=== PATIENT | female | born 1980 | race American Indian/Alaskan Native ===

== ENCOUNTER 2018-12-22 16:28 | Inpatient (IN) | payer MEDICAID ==
[2018-12-22] MEDS ORDERED: DOLOPHINE PO PRN (17:40)
[2018-12-22] MEDS ORDERED: ZOFRAN IV PRN (17:43)
[2018-12-22 19:49] LABS: Hematocrit 33.2 % (30.3-42.9); Hemoglobin 11.4 gm/dl (10.1-14.3); Mean Corpuscular HGB Conc 34 % (30-34); Mean Corpuscular Volume 74 fl (79-97); Platelet Count 408 K/mm3 (140-440); Red Blood Count 4.49 M/mm3 (3.65-5.03); Red Cell Distribution Width 14.5 % (13.2-15.2)
[2018-12-22 20:05] LABS: % Iron Saturation 38.87 %; Alanine Aminotransferase 22 units/L (7-56); Albumin 4.1 g/dL (3.9-5); BUN/Creatinine Ratio 18; Blood Urea Nitrogen 7 mg/dL (7-17); Calcium 8.9 mg/dL (8.4-10.2); Hemolysis Index 4; Iron 103 ug/dL (37-170); Total Iron Binding Capacity 265 mcg/dL (250-450)
[2018-12-22 20:33] LABS: Basophils % (Manual) 0 % (0.0-1.8); Eosinophils % (Manual) 0 % (0.0-4.3); Total Cells Counted 100
[2018-12-22 20:34] LABS: Poikilocytosis Few; Sickle Cells Few; Target Cells 3+
[2018-12-22 20:35] LABS: Giant Platelets Few; Platelet Estimate Consistent w Auto
[2018-12-22] MEDS: D5NS 0.2% 1,000 ML IV SCH (20:57)
[2018-12-22] MEDS: ELIQUIS PO SCH (21:00)
[2018-12-22] MEDS: DILAUDID IV PRN (21:45)
[2018-12-22] MEDS: BENADRYL IV PRN (21:53)
[2018-12-22] MEDS: AMBIEN PO PRN (23:15)
[2018-12-22] MEDS: ELAVIL PO SCH (23:50)
[2018-12-23] MEDS: DILAUDID IV PRN ×8 (01:20→22:26)
[2018-12-23] MEDS: D5NS 0.2% 1,000 ML IV SCH ×3 (04:11→23:05)
[2018-12-23] MEDS: BENADRYL IV PRN ×6 (04:13→22:26)
[2018-12-23 08:44] LABS: Bacteria,Urine 1+ /HPF (Negative); Bilirubin,Urine NEG (Negative); Blood,Urine NEG (Negative); Color,Urine Yellow (Yellow); Mucus,Urine FEW /HPF; Protein,Urine <15 mg/dL mg/dL (Negative); WBC,Urine < 1.0 /HPF (0.0-6.0)
[2018-12-23] MEDS: FOLVITE PO SCH (09:29)
[2018-12-23] MEDS: ELIQUIS PO SCH ×2 (09:29→21:04)
[2018-12-23] MEDS ORDERED: LASIX IV ONE ×2 (10:00)
--- NOTE | 2018-12-23 19:51 | History and Physical Report ---
History of Present Illness Date of examination: 12/23/18 Date of admission: 12/22/18 16:38 Chief complaint: Diffuse joint pain, SOB. History of present illness: Patient presented to the office with CC of diffuse joint pain, not controlled by her home meds. Exam in the office indicated symptomatic crisis like discomfort. Patient was admitted for labs, pain control, and hydration. Her labs have been reviewed, case d/w her. Even though her retic is not high, and there is no obvious anemia, non the less, she is still going through some VOD.Will continue pain management, and hydration, and anti itch, and plan d/c in the next 24hr ,or so. Past History Past Medical History: migraines Social history: Family history: no significant family history Medications and Allergies Allergies Allergy/AdvReac Type Severity Reaction Status Date / Time codeine Allergy Unknown Verified 12/22/18 17:35 vancomycin Allergy Rash Verified 12/22/18 17:35 Home Medications Medication Instructions Recorded Confirmed Last Taken Type Folic Acid [Folvite] 1 mg PO BID 05/03/13 12/22/18 12/21/18 20:30 History Gabapentin 300 mg PO TID 05/03/13 12/22/18 12/21/18 20:30 History Morphine [Morphine TAB] 30 mg PO Q4-6H PRN 05/03/13 12/22/18 12/22/18 14:00 History Promethazine [Phenergan] 25 mg PO Q4-6H PRN 05/03/13 12/22/18 12/21/18 20:30 History Furosemide [Lasix TAB] 80 mg PO BID 10/12/13 12/22/18 12/21/18 12:00 History Potassium Chloride 20 meq PO DAILY 05/04/14 12/22/18 12/21/18 20:30 History Fluticasone/Salmeterol [Advair 1 puff IH BID 01/18/15 12/22/18 12/21/18 22:00 History Diskus 500-50 mcg] Butalb/Acetamin/Caff 50-325-40 50 mg PO Q6HR PRN 03/20/15 12/22/18 12/22/18 12:00 History [Fioricet 50-325-40] Venlafaxine [Effexor 37.5mg tab] 37.5 mg PO BID 03/20/15 12/22/18 01/04/16 11:53 History hydrOXYzine PAMOATE [Vistaril] 50 mg PO BID PRN 03/20/15 12/22/18 12/21/18 20:30 History Methadone [Dolophine] 10 mg PO Q6H PRN 07/13/15 12/22/18 12/22/18 12:00 History Zolpidem [Ambien] 10 mg PO QHS 07/13/15 12/22/18 12/21/18 20:30 History Active Meds: Active Medications Amitriptyline HCl (Elavil) 75 mg PO QHS DIONTE Last Admin: 12/22/18 23:50 Dose: 75 mg Documented by: Apixaban (Eliquis) 5 mg PO Q12HR DIONTE; Protocol Last Admin: 12/23/18 09:29 Dose: 5 mg Documented by: Diphenhydramine HCl (Benadryl) 25 mg IV Q3HR PRN PRN Reason: Itching Last Admin: 12/23/18 19:07 Dose: 25 mg Documented by: Folic Acid (Folvite) 1 mg PO QDAY DIONTE Last Admin: 12/23/18 09:29 Dose: 1 mg Documented by: Hydromorphone HCl (Dilaudid) 2 mg IV Q3H PRN PRN Reason: Pain , Severe (7-10) Last Admin: 12/23/18 19:07 Dose: 2 mg Documented by: Dextrose/Sodium Chloride (D5ns 0.2%) 1,000 mls @ 175 mls/hr IV DIRECT DIONTE Last Admin: 12/23/18 09:33 Dose: 175 mls/hr Documented by: Methadone HCl (Dolophine) 10 mg PO Q8HR PRN PRN Reason: BREAKTHRU PAIN Last Admin: 12/22/18 23:14 Dose: 10 mg Documented by: Ondansetron HCl (Zofran) 4 mg IV Q8H PRN PRN Reason: Nausea And Vomiting Last Admin: 12/23/18 01:20 Dose: 4 mg Documented by: Zolpidem Tartrate (Ambien) 5 mg PO QHS PRN PRN Reason: Sleep Last Admin: 12/22/18 23:15 Dose: 5 mg Documented by: Review of Systems Constitutional: fatigue, chronic pain Breasts: deferred Respiratory: shortness of breath Musculoskeletal: low back pain Integumentary: pruritis Psychiatric: insomnia, depression Exam - Constitutional Vitals: Temp Pulse Resp BP Pulse Ox 98.2 F 100 H 18 110/62 93 12/23/18 16:42 12/23/18 16:42 12/23/18 16:42 12/23/18 16:42 12/23/18 16:42 General appearance: Present: mild distress, well-nourished - EENT Eyes: Present: PERRL ENT: hearing intact, clear oral mucosa - Neck Neck: Present: supple, normal ROM - Respiratory Respiratory effort: normal Respiratory: bilateral: CTA - Cardiovascular Heart Sounds: Present: S1 & S2. Absent: rub, click - Extremities Extremities: pulses symmetrical, No edema Peripheral Pulses: within normal limits - Abdominal General gastrointestinal: Present: soft, non-tender, non-distended, normal bowel sounds Female genitourinary: Present: deferred - Rectal Rectal Exam: deferred - Integumentary Integumentary: Present: clear, warm, dry - Musculoskeletal Musculoskeletal: gait normal, strength equal bilaterally - Psychiatric Psychiatric: appropriate mood/affect, intact judgment & insight - Neurologic Neurologic: CNII-XII intact, moves all extremities Results - Labs CBC & Chem 7: 12/22/18 19:10 12/22/18 19:10 Labs: Abnormal lab results 12/22/18 12/22/18 Range/Units 19:10 19:10 WBC 12.6 H (4.5-11.0) K/mm3 MCV 74 L (79-97) fl MCH 25 L (28-32) pg Lymphocytes % (Manual) 47.0 H (13.4-35.0) % Monocytes % (Manual) 8.0 H (0.0-7.3) % Lymphocytes # (Manual) 5.9 H (1.2-5.4) K/mm3 Monocytes # (Manual) 1.0 H (0.0-0.8) K/mm3 Creatinine 0.4 L (0.7-1.2) mg/dL Lactate Dehydrogenase 252 H (91-180) units/L Assessment and Plan - Patient Problems (1) Sickle cell anemia with pain Current Visit: Yes Status: Acute Plan to address problem: monitor labs., pain control. (2) Dehydration Current Visit: Yes Status: Acute Plan to address problem: hydration (3) Pruritic condition Current Visit: Yes Status: Acute Plan to address problem: Due to Diludid, will continue with Benadryl, with prn adjusted dose.
[2018-12-23] MEDS ORDERED: BENADRYL IV ONE (19:58)
[2018-12-23] MEDS: ELAVIL PO SCH (21:04)
[2018-12-23] MEDS ORDERED: ELAVIL PO SCH (22:00)
[2018-12-23] MEDS: ROCEPHIN/NS 1 GM/50 ML 1 GM/50 ML BAG IV SCH (23:04)
[2018-12-23] MEDS: AMBIEN PO PRN (23:04)
[2018-12-24] MEDS: DILAUDID IV PRN ×7 (01:35→21:33)
[2018-12-24] MEDS: BENADRYL IV PRN ×6 (01:35→18:33)
[2018-12-24] MEDS: ELIQUIS PO SCH ×2 (10:16→21:33)
[2018-12-24] MEDS: ROCEPHIN/NS 1 GM/50 ML 1 GM/50 ML BAG IV SCH (10:16)
[2018-12-24] MEDS: FOLVITE PO SCH (10:16)
[2018-12-24] MEDS: D5NS 0.2% 1,000 ML IV SCH ×2 (11:53→20:30)
--- NOTE | 2018-12-24 19:15 | Progress Note ---
Assessment and Plan - Patient Problems (1) Sickle cell anemia with pain Current Visit: Yes Status: Acute Plan to address problem: monitor labs., pain control. (2) Dehydration Current Visit: Yes Status: Acute Plan to address problem: hydration (3) Pruritic condition Current Visit: Yes Status: Acute Plan to address problem: Due to Diludid, will continue with Benadryl, with prn adjusted dose. (4) Bacteremia Current Visit: Yes Status: Acute Plan to address problem: continue with IV ABX. Subjective Date of service: 12/24/18 Interval history: Patient seen/examined, resting in bed, labs reviewed, including BC with gram negative rods, in 1 of 2 blood culture bottles. patient started on IV ABx yes terday. Will continue for few days, and d/c on oral ABX. Objective - Constitutional Vitals: Vital Signs - 12hr 12/24/18 12/24/18 12/24/18 08:30 09:00 11:26 Temperature 98.4 F Pulse Rate 96 H Respiratory 18 18 20 Rate Blood Pressure 115/63 O2 Sat by Pulse 90 Oximetry 12/24/18 12/24/18 17:12 18:33 Temperature 98.9 F Pulse Rate 102 H Respiratory 16 18 Rate Blood Pressure 129/59 O2 Sat by Pulse 91 Oximetry General appearance: Present: mild distress, well-nourished - EENT Eyes: PERRL, EOM intact ENT: hearing intact, clear oral mucosa Ears: bilateral: normal - Neck Neck: supple, normal ROM - Respiratory Respiratory effort: normal Respiratory: bilateral: CTA - Breasts Breasts: deferred - Cardiovascular Rhythm: regular Heart Sounds: Present: S1 & S2. Absent: gallop, rub Extremities: pulses intact, No edema, normal color, Full ROM - Gastrointestinal General gastrointestinal: Present: soft, non-tender, non-distended, normal bowel sounds Rectal Exam: deferred - Genitourinary Female genitourinary: deferred - Integumentary Integumentary: clear, warm, dry - Musculoskeletal Musculoskeletal: 1, strength equal bilaterally - Neurologic Neurologic: moves all extremities - Psychiatric Psychiatric: memory intact, appropriate mood/affect, intact judgment & insight - Labs CBC & Chem 7: 12/22/18 19:10 12/22/18 19:10 Medications & Allergies - Medications Allergies/Adverse Reactions: Allergies codeine Allergy (Verified 12/22/18 17:35) Unknown vancomycin Allergy (Verified 12/22/18 17:35) Rash "galo my skin" Home Medications: Home Medications Medication Instructions Recorded Confirmed Last Taken Type Folic Acid [Folvite] 1 mg PO BID 05/03/13 12/22/18 12/21/18 20:30 History Gabapentin 300 mg PO TID 05/03/13 12/22/18 12/21/18 20:30 History Morphine [Morphine TAB] 30 mg PO Q4-6H PRN 05/03/13 12/22/18 12/22/18 14:00 History Promethazine [Phenergan] 25 mg PO Q4-6H PRN 05/03/13 12/22/18 12/21/18 20:30 History Furosemide [Lasix TAB] 80 mg PO BID 10/12/13 12/22/18 12/21/18 12:00 History Potassium Chloride 20 meq PO DAILY 05/04/14 12/22/18 12/21/18 20:30 History Fluticasone/Salmeterol [Advair 1 puff IH BID 01/18/15 12/22/18 12/21/18 22:00 History Diskus 500-50 mcg] Butalb/Acetamin/Caff 50-325-40 50 mg PO Q6HR PRN 03/20/15 12/22/18 12/22/18 12:00 History [Fioricet 50-325-40] Venlafaxine [Effexor 37.5mg tab] 37.5 mg PO BID 03/20/15 12/22/18 01/04/16 11:53 History hydrOXYzine PAMOATE [Vistaril] 50 mg PO BID PRN 03/20/15 12/22/18 12/21/18 20:30 History Methadone [Dolophine] 10 mg PO Q6H PRN 07/13/15 12/22/18 12/22/18 12:00 History Zolpidem [Ambien] 10 mg PO QHS 07/13/15 12/22/18 12/21/18 20:30 History Active Medications: Generic Name Dose Route Start Last Admin Trade Name Freq PRN Reason Stop Dose Admin Amitriptyline HCl 75 mg 12/22/18 22:00 12/23/18 21:04 Elavil PO 75 mg QHS DIONTE Administration Apixaban 5 mg 12/22/18 22:00 12/24/18 10:16 Eliquis PO 5 mg Q12HR DIONTE Administration Protocol Diphenhydramine HCl 25 mg 12/23/18 12:42 12/24/18 18:33 Benadryl IV 25 mg Q3HR PRN Administration Itching Folic Acid 1 mg 12/23/18 10:00 12/24/18 10:16 Folvite PO 1 mg QDAY DIONTE Administration Hydromorphone HCl 2 mg 12/22/18 17:51 12/24/18 18:33 Dilaudid IV 2 mg Q3H PRN Administration Pain , Severe (7-10) Dextrose/Sodium Chloride 1,000 mls @ 175 mls/hr 12/22/18 18:00 12/24/18 11:53 D5ns 0.2% IV 175 mls/hr DIRECT DIONTE Administration Ceftriaxone Sodium 1 gm in 50 mls @ 100 mls/hr 12/23/18 21:00 12/24/18 10:16 Rocephin/Ns 1 Gm/50 Ml IV 100 mls/hr Q24HR DIONTE Administration Protocol Methadone HCl 10 mg 12/22/18 17:40 12/22/18 23:14 Dolophine PO 10 mg Q8HR PRN Administration BREAKTHRU PAIN Ondansetron HCl 4 mg 12/22/18 17:43 12/23/18 01:20 Zofran IV 4 mg Q8H PRN Administration Nausea And Vomiting Zolpidem Tartrate 5 mg 12/22/18 17:37 12/23/18 23:04 Ambien PO 5 mg QHS PRN Administration Sleep
[2018-12-24] MEDS: ELAVIL PO SCH (21:37)
[2018-12-24] MEDS ORDERED: MIRALAX 3350 PO PRN (23:29)
[2018-12-25] MEDS: DILAUDID IV PRN ×8 (00:32→22:12)
[2018-12-25] MEDS: COLACE PO SCH ×3 (00:32→22:11)
[2018-12-25] MEDS: BENADRYL IV PRN ×4 (00:32→19:01)
[2018-12-25] MEDS: AMBIEN PO PRN ×2 (01:57→22:11)
[2018-12-25] MEDS: D5NS 0.2% 1,000 ML IV SCH ×3 (05:29→19:02)
--- NOTE | 2018-12-25 09:19 | Progress Note ---
Assessment and Plan - Patient Problems (1) Sickle cell anemia with pain Current Visit: Yes Status: Acute Plan to address problem: monitor labs., pain control. (2) Dehydration Current Visit: Yes Status: Acute Plan to address problem: hydration (3) Pruritic condition Current Visit: Yes Status: Acute Plan to address problem: Due to Diludid, will continue with Benadryl, with prn adjusted dose. (4) Bacteremia Current Visit: Yes Status: Acute Plan to address problem: continue with IV ABX. Subjective Date of service: 12/25/18 Interval history: Patient seen/examined, resting in bed, labs reviewed, including BC with gram negative rods, in 1 of 2 blood culture bottles. patient started on IV ABx yes terday. Will continue for few days, and d/c on oral ABX. patient seen/examined, resting in bed, records reviewed, no new issues at this time.will continue IV ABX for another 2 or so days, and d/c home. Objective - Constitutional Vitals: Vital Signs - 12hr 12/25/18 12/25/18 00:30 05:48 Temperature 98.4 F 98.5 F Pulse Rate 101 H 106 H Respiratory 18 20 Rate Blood Pressure 121/66 115/74 O2 Sat by Pulse 98 99 Oximetry General appearance: Present: mild distress, well-nourished - EENT Eyes: PERRL, EOM intact ENT: hearing intact, clear oral mucosa Ears: bilateral: normal - Neck Neck: supple, normal ROM - Respiratory Respiratory effort: normal Respiratory: bilateral: CTA - Breasts Breasts: deferred - Cardiovascular Rhythm: regular Heart Sounds: Present: S1 & S2. Absent: gallop, rub Extremities: pulses intact, No edema, normal color, Full ROM - Gastrointestinal General gastrointestinal: Present: soft, non-tender, non-distended, normal bowel sounds Rectal Exam: deferred - Genitourinary Female genitourinary: deferred - Integumentary Integumentary: clear, warm, dry - Musculoskeletal Musculoskeletal: 1, strength equal bilaterally - Neurologic Neurologic: moves all extremities - Psychiatric Psychiatric: memory intact, appropriate mood/affect, intact judgment & insight - Labs CBC & Chem 7: 12/22/18 19:10 12/22/18 19:10 Medications & Allergies - Medications Allergies/Adverse Reactions: Allergies codeine Allergy (Verified 12/22/18 17:35) Unknown vancomycin Allergy (Verified 12/22/18 17:35) Rash "galo my skin" Home Medications: Home Medications Medication Instructions Recorded Confirmed Last Taken Type Folic Acid [Folvite] 1 mg PO BID 05/03/13 12/22/18 12/21/18 20:30 History Gabapentin 300 mg PO TID 05/03/13 12/22/18 12/21/18 20:30 History Morphine [Morphine TAB] 30 mg PO Q4-6H PRN 05/03/13 12/22/18 12/22/18 14:00 History Promethazine [Phenergan] 25 mg PO Q4-6H PRN 05/03/13 12/22/18 12/21/18 20:30 History Furosemide [Lasix TAB] 80 mg PO BID 10/12/13 12/22/18 12/21/18 12:00 History Potassium Chloride 20 meq PO DAILY 05/04/14 12/22/18 12/21/18 20:30 History Fluticasone/Salmeterol [Advair 1 puff IH BID 01/18/15 12/22/18 12/21/18 22:00 History Diskus 500-50 mcg] Butalb/Acetamin/Caff 50-325-40 50 mg PO Q6HR PRN 03/20/15 12/22/18 12/22/18 12:00 History [Fioricet 50-325-40] Venlafaxine [Effexor 37.5mg tab] 37.5 mg PO BID 03/20/15 12/22/18 01/04/16 11:53 History hydrOXYzine PAMOATE [Vistaril] 50 mg PO BID PRN 03/20/15 12/22/18 12/21/18 20:30 History Methadone [Dolophine] 10 mg PO Q6H PRN 07/13/15 12/22/18 12/22/18 12:00 History Zolpidem [Ambien] 10 mg PO QHS 07/13/15 12/22/18 12/21/18 20:30 History Active Medications: Generic Name Dose Route Start Last Admin Trade Name Freq PRN Reason Stop Dose Admin Amitriptyline HCl 75 mg 12/22/18 22:00 12/24/18 21:37 Elavil PO 75 mg QHS DIONTE Administration Apixaban 5 mg 12/22/18 22:00 12/24/18 21:33 Eliquis PO 5 mg Q12HR DIONTE Administration Protocol Diphenhydramine HCl 50 mg 12/24/18 20:21 12/25/18 06:52 Benadryl IV 50 mg Q6H PRN Administration Itching Docusate Sodium 100 mg 12/24/18 23:45 12/25/18 00:32 Colace PO 100 mg BID DIONTE Administration Folic Acid 1 mg 12/23/18 10:00 12/24/18 10:16 Folvite PO 1 mg QDAY DIONTE Administration Hydromorphone HCl 2 mg 12/22/18 17:51 12/25/18 06:51 Dilaudid IV 2 mg Q3H PRN Administration Pain , Severe (7-10) Dextrose/Sodium Chloride 1,000 mls @ 175 mls/hr 12/22/18 18:00 12/25/18 05:29 D5ns 0.2% IV 175 mls/hr DIRECT DIONTE Administration Ceftriaxone Sodium 1 gm in 50 mls @ 100 mls/hr 12/23/18 21:00 12/24/18 10:16 Rocephin/Ns 1 Gm/50 Ml IV 100 mls/hr Q24HR DIONTE Administration Protocol Methadone HCl 10 mg 12/22/18 17:40 12/22/18 23:14 Dolophine PO 10 mg Q8HR PRN Administration BREAKTHRU PAIN Ondansetron HCl 4 mg 12/22/18 17:43 12/23/18 01:20 Zofran IV 4 mg Q8H PRN Administration Nausea And Vomiting Polyethylene Glycol 17 gm 12/24/18 23:29 Miralax 3350 PO QDAY PRN Constipation Zolpidem Tartrate 5 mg 12/22/18 17:37 12/25/18 01:57 Ambien PO 5 mg QHS PRN Administration Sleep
[2018-12-25] MEDS: ELIQUIS PO SCH ×2 (09:52→22:11)
[2018-12-25] MEDS: FOLVITE PO SCH (09:53)
[2018-12-25] MEDS: ROCEPHIN/NS 1 GM/50 ML 1 GM/50 ML BAG IV SCH (09:53)
[2018-12-25] MEDS: ELAVIL PO SCH (22:11)
[2018-12-26] MEDS: BENADRYL IV PRN ×4 (01:14→23:25)
[2018-12-26] MEDS: DILAUDID IV PRN ×7 (01:14→23:25)
[2018-12-26] MEDS: D5NS 0.2% 1,000 ML IV SCH ×4 (01:17→23:24)
[2018-12-26] MEDS: ELIQUIS PO SCH ×2 (09:43→21:32)
[2018-12-26] MEDS: FOLVITE PO SCH (09:43)
[2018-12-26] MEDS: COLACE PO SCH ×2 (09:43→21:32)
[2018-12-26 10:21] LABS: Hematocrit 29.2 % (30.3-42.9); Mean Corpuscular HGB Conc 34 % (30-34); Mean Corpuscular Volume 74 fl (79-97); Platelet Count 381 K/mm3 (140-440); Red Blood Count 3.96 M/mm3 (3.65-5.03); Red Cell Distribution Width 14.8 % (13.2-15.2)
[2018-12-26] MEDS: ROCEPHIN/NS 1 GM/50 ML 1 GM/50 ML BAG IV SCH (10:40)
[2018-12-26 11:28] LABS: BUN/Creatinine Ratio 20; Blood Urea Nitrogen 6 mg/dL (7-17); Calcium 8.4 mg/dL (8.4-10.2); Hemolysis Index 15
[2018-12-26 11:38] LABS: Basophils % (Manual) 0 % (0.0-1.8); Total Cells Counted 100
[2018-12-26 11:43] LABS: Target Cells 2+
[2018-12-26 11:44] LABS: Anisocytosis 1+; Platelet Estimate Consistent w Auto; Poikilocytosis 1+; Sickle Cells Few; Stomatocytes 1+
[2018-12-26] MEDS ORDERED: BENADRYL ONE (15:48)
--- NOTE | 2018-12-26 18:51 | Progress Note ---
Assessment and Plan - Patient Problems (1) Sickle cell anemia with pain Current Visit: Yes Status: Acute Plan to address problem: monitor labs., pain control. (2) Dehydration Current Visit: Yes Status: Acute Plan to address problem: hydration (3) Pruritic condition Current Visit: Yes Status: Acute Plan to address problem: Due to Diludid, will continue with Benadryl, with prn adjusted dose. (4) Bacteremia Current Visit: Yes Status: Acute Plan to address problem: continue with IV ABX. (5) Sepsis Current Visit: Yes Status: Acute Plan to address problem: IV ABX Subjective Date of service: 12/26/18 Interval history: Patient seen/examined, resting in bed, labs reviewed, including BC with gram negative rods, in 1 of 2 blood culture bottles. patient started on IV ABx yesterday. Will continue for few days, and d/c on oral ABX. patient seen/examined, resting in bed, records reviewed, no new issues at this time.will continue IV ABX for another 2 or so days, and d/c home. patient seen, examined, resting in bed, labs/cultures reviewed, case d/w her. She is growing Diptheroids in the blood. Objective - Constitutional Vitals: Vital Signs - 12hr 12/26/18 12/26/18 11:20 16:39 Temperature 98.6 F 98.2 F Pulse Rate 90 99 H Respiratory 20 22 Rate Blood Pressure 113/63 105/63 O2 Sat by Pulse 98 93 Oximetry General appearance: Present: mild distress, well-nourished - EENT Eyes: PERRL, EOM intact ENT: hearing intact, clear oral mucosa Ears: bilateral: normal - Neck Neck: supple, normal ROM - Respiratory Respiratory effort: normal Respiratory: bilateral: CTA - Breasts Breasts: deferred - Cardiovascular Rhythm: regular Heart Sounds: Present: S1 & S2. Absent: gallop, rub Extremities: pulses intact, No edema, normal color, Full ROM - Gastrointestinal General gastrointestinal: Present: soft, non-tender, non-distended, normal bowel sounds Rectal Exam: deferred - Genitourinary Female genitourinary: deferred - Integumentary Integumentary: clear, warm, dry - Musculoskeletal Musculoskeletal: 1, strength equal bilaterally - Neurologic Neurologic: moves all extremities - Psychiatric Psychiatric: memory intact, appropriate mood/affect, intact judgment & insight - Labs CBC & Chem 7: 12/26/18 09:40 12/26/18 09:40 Labs: Abnormal lab results 12/26/18 12/26/18 Range/Units 09:40 09:40 WBC 13.3 H (4.5-11.0) K/mm3 Hgb 10.0 L (10.1-14.3) gm/dl Hct 29.2 L (30.3-42.9) % MCV 74 L (79-97) fl MCH 25 L (28-32) pg Lymphocytes % (Manual) 46.0 H (13.4-35.0) % Nucleated RBC % 1.0 H (0.0-0.9) % Lymphocytes # (Manual) 6.1 H (1.2-5.4) K/mm3 Percent Retic 3.10 H (0.78-2.58) % Sodium 135 L (137-145) mmol/L BUN 6 L (7-17) mg/dL Creatinine 0.3 L (0.7-1.2) mg/dL Glucose 118 H (65-100) mg/dL Medications & Allergies - Medications Allergies/Adverse Reactions: Allergies codeine Allergy (Verified 12/22/18 17:35) Unknown vancomycin Allergy (Verified 12/22/18 17:35) Rash "galo my skin" Home Medications: Home Medications Medication Instructions Recorded Confirmed Last Taken Type Folic Acid [Folvite] 1 mg PO BID 05/03/13 12/22/18 12/21/18 20:30 History Gabapentin 300 mg PO TID 05/03/13 12/22/18 12/21/18 20:30 History Morphine [Morphine TAB] 30 mg PO Q4-6H PRN 05/03/13 12/22/18 12/22/18 14:00 History Promethazine [Phenergan] 25 mg PO Q4-6H PRN 05/03/13 12/22/18 12/21/18 20:30 History Furosemide [Lasix TAB] 80 mg PO BID 10/12/13 12/22/18 12/21/18 12:00 History Potassium Chloride 20 meq PO DAILY 05/04/14 12/22/18 12/21/18 20:30 History Fluticasone/Salmeterol [Advair 1 puff IH BID 07/12/22/18 12/21/18 22:00 History Diskus 500-50 mcg] Butalb/Acetamin/Caff 50-325-40 50 mg PO Q6HR PRN 03/20/15 12/22/18 12/22/18 1 2:00 History [Fioricet 50-325-40] Venlafaxine [Effexor 37.5mg tab] 37.5 mg PO BID 03/20/15 12/22/18 01/04/16 11:53 History hydrOXYzine PAMOATE [Vistaril] 50 mg PO BID PRN 03/20/15 12/22/18 12/21/18 20:30 History Methadone [Dolophine] 10 mg PO Q6H PRN 07/13/15 12/22/18 12/22/18 12:00 History Zolpidem [Ambien] 10 mg PO QHS 07/13/15 12/22/18 12/21/18 20:30 History Active Medications: Generic Name Dose Route Start Last Admin Trade Name Jose Danielq PRN Reason Stop Dose Admin Amitriptyline HCl 75 mg 12/22/18 22:00 12/25/18 22:11 Elavil PO 75 mg QHS DIONTE Administration Apixaban 5 mg 12/22/18 22:00 12/26/18 09:43 Eliquis PO 5 mg Q12HR DIONTE Administration Protocol Diphenhydramine HCl 50 mg 12/24/18 20:21 12/26/18 15:58 Benadryl IV 50 mg Q6H PRN Administration Itching Docusate Sodium 100 mg 12/24/18 23:45 12/26/18 09:43 Colace PO 100 mg BID DIONTE Administration Folic Acid 1 mg 12/23/18 10:00 12/26/18 09:43 Folvite PO 1 mg QDAY DIONTE Administration Hydromorphone HCl 2 mg 12/22/18 17:51 12/26/18 15:58 Dilaudid IV 2 mg Q3H PRN Administration Pain , Severe (7-10) Dextrose/Sodium Chloride 1,000 mls @ 175 mls/hr 12/22/18 18:00 12/26/18 16:39 D5ns 0.2% IV 175 mls/hr DIRECT DIONTE Administration Ceftriaxone Sodium 1 gm in 50 mls @ 100 mls/hr 12/23/18 21:00 12/26/18 10:40 Rocephin/Ns 1 Gm/50 Ml IV 100 mls/hr Q24HR DIONTE Administration Protocol Methadone HCl 10 mg 12/22/18 17:40 12/22/18 23:14 Dolophine PO 10 mg Q8HR PRN Administration BREAKTHRU PAIN Ondansetron HCl 4 mg 12/22/18 17:43 12/23/18 01:20 Zofran IV 4 mg Q8H PRN Administration Nausea And Vomiting Polyethylene Glycol 17 gm 12/24/18 23:29 Miralax 3350 PO QDAY PRN Constipation Zolpidem Tartrate 5 mg 12/22/18 17:37 12/25/18 22:11 Ambien PO 5 mg QHS PRN Administration Sleep
[2018-12-26] MEDS: ELAVIL PO SCH (21:32)
[2018-12-27] MEDS: DILAUDID IV PRN ×6 (02:39→21:02)
[2018-12-27] MEDS: AMBIEN PO PRN (03:38)
[2018-12-27] MEDS: D5NS 0.2% 1,000 ML IV SCH ×3 (06:34→20:35)
[2018-12-27] MEDS: BENADRYL IV PRN ×3 (06:34→21:03)
[2018-12-27] MEDS: FOLVITE PO SCH (09:38)
[2018-12-27] MEDS: ELIQUIS PO SCH ×2 (09:38→21:04)
[2018-12-27] MEDS: COLACE PO SCH ×2 (09:38→21:04)
[2018-12-27] MEDS: ROCEPHIN/NS 1 GM/50 ML 1 GM/50 ML BAG IV SCH (09:39)
--- NOTE | 2018-12-27 15:25 | Progress Note ---
Assessment and Plan - Patient Problems (1) Sickle cell anemia with pain Current Visit: Yes Status: Acute Plan to address problem: monitor labs., pain control. (2) Dehydration Current Visit: Yes Status: Acute Plan to address problem: hydration (3) Pruritic condition Current Visit: Yes Status: Acute Plan to address problem: Due to Diludid, will continue with Benadryl, with prn adjusted dose. (4) Bacteremia Current Visit: Yes Status: Acute Plan to address problem: continue with IV ABX. (5) Sepsis Current Visit: Yes Status: Acute Plan to address problem: IV ABX Subjective Date of service: 12/27/18 Interval history: Patient seen/examined, resting in bed, labs reviewed, including BC with gram negative rods, in 1 of 2 blood culture bottles. patient started on IV ABx yesterday. Will continue for few days, and d/c on oral ABX. patient seen/examined, resting in bed, records reviewed, no new issues at this time.will continue IV ABX for another 2 or so days, and d/c home. patient seen, examined, resting in bed, labs/cultures reviewed, case d/w her. She is growing Diptheroids in the blood. Patient seen/examined, resting in bed, labs reviewed, still awaiting ID rec so patient can be d/c home. the only reason she is still here , is for ID to render opinion on on current ABX. Objective - Constitutional Vitals: Vital Signs - 12hr 12/27/18 12/27/18 12/27/18 09:39 10:00 10:09 Respiratory 18 18 Rate Respiratory 18 Rate [rt leg left hip pain] O2 Sat by Pulse Oximetry 12/27/18 12/27/18 12:39 14:00 Respiratory 18 Rate Respiratory Rate [rt leg left hip pain] O2 Sat by Pulse 95 Oximetry General appearance: Present: no acute distress, well-nourished - EENT Eyes: PERRL, EOM intact ENT: hearing intact, clear oral mucosa Ears: bilateral: normal - Neck Neck: supple, normal ROM - Respiratory Respiratory effort: normal Respiratory: bilateral: CTA - Breasts Breasts: deferred - Cardiovascular Rhythm: regular Heart Sounds: Present: S1 & S2. Absent: gallop, rub Extremities: pulses intact, No edema, normal color, Full ROM - Gastrointestinal General gastrointestinal: Present: soft, non-tender, non-distended, normal bowel sounds Rectal Exam: deferred - Genitourinary Female genitourinary: deferred - Integumentary Integumentary: clear, warm, dry - Musculoskeletal Musculoskeletal: 1, strength equal bilaterally - Neurologic Neurologic: moves all extremities - Psychiatric Psychiatric: memory intact, appropriate mood/affect, intact judgment & insight - Labs CBC & Chem 7: 12/26/18 09:40 12/26/18 09:40 Medications & Allergies - Medications Allergies/Adverse Reactions: Allergies codeine Allergy (Verified 12/22/18 17:35) Unknown vancomycin Allergy (Verified 12/22/18 17:35) Rash "galo my skin" Home Medications: Home Medications Medication Instructions Recorded Confirmed Last Taken Type Folic Acid [Folvite] 1 mg PO BID 05/03/13 12/22/18 12/21/18 20:30 History Gabapentin 300 mg PO TID 05/03/13 12/22/18 12/21/18 20:30 History Morphine [Morphine TAB] 30 mg PO Q4-6H PRN 05/03/13 12/22/18 12/22/18 14:00 History Promethazine [Phenergan] 25 mg PO Q4-6H PRN 05/03/13 12/22/18 12/21/18 20:30 History Furosemide [Lasix TAB] 80 mg PO BID 10/12/13 12/22/18 12/21/18 12:00 History Potassium Chloride 20 meq PO DAILY 05/04/14 12/22/18 12/21/18 20:30 History Fluticasone/Salmeterol [Advair 1 puff IH BID 01/18/15 12/22/18 12/21/18 22:00 History Diskus 500-50 mcg] Butalb/Acetamin/Caff 50-325-40 50 mg PO Q6HR PRN 03/20/15 12/22/18 12/22/18 12:00 History [Fioricet 50-325-40] Venlafaxine [Effexor 37.5mg tab] 37.5 mg PO BID 03/20/15 12/22/18 01/04/16 11:53 History hydrOXYzine PAMOATE [Vistaril] 50 mg PO BID PRN 03/20/15 12/22/18 12/21/18 20:30 History Methadone [Dolophine] 10 mg PO Q6H PRN 07/13/15 12/22/18 12/22/18 12:00 History Zolpidem [Ambien] 10 mg PO QHS 07/13/15 12/22/18 12/21/18 20:30 History Active Medications: Generic Name Dose Route Start Last Admin Trade Name Freq PRN Reason Stop Dose Admin Amitriptyline HCl 75 mg 12/22/18 22:00 12/26/18 21:32 Elavil PO 75 mg QHS DIONET Administration Apixaban 5 mg 12/22/18 22:00 12/27/18 09:38 Eliquis PO 5 mg Q12HR DIONTE Administration Protocol Diphenhydramine HCl 50 mg 12/24/18 20:21 12/27/18 12:40 Benadryl IV 50 mg Q6H PRN Administration Itching Docusate Sodium 100 mg 12/24/18 23:45 12/27/18 09:38 Colace PO 100 mg BID DIONTE Administration Folic Acid 1 mg 12/23/18 10:00 12/27/18 09:38 Folvite PO 1 mg QDAY DIONTE Administration Hydromorphone HCl 2 mg 12/22/18 17:51 12/27/18 12:39 Dilaudid IV 2 mg Q3H PRN Administration Pain , Severe (7-10) Dextrose/Sodium Chloride 1,000 mls @ 175 mls/hr 12/22/18 18:00 12/27/18 12:44 D5ns 0.2% IV 175 mls/hr DIRECT DIONTE Administration Ceftriaxone Sodium 1 gm in 50 mls @ 100 mls/hr 12/23/18 21:00 12/27/18 09:39 Rocephin/Ns 1 Gm/50 Ml IV 100 mls/hr Q24HR DIONTE Administration Protocol Methadone HCl 10 mg 12/22/18 17:40 12/22/18 23:14 Dolophine PO 10 mg Q8HR PRN Administration BREAKTHRU PAIN Ondansetron HCl 4 mg 12/22/18 17:43 12/23/18 01:20 Zofran IV 4 mg Q8H PRN Administration Nausea And Vomiting Polyethylene Glycol 17 gm 12/24/18 23:29 Miralax 3350 PO QDAY PRN Constipation Zolpidem Tartrate 5 mg 06/17/19 17:37 12/27/18 03:38 Ambien PO 5 mg QHS PRN Administration Sleep
--- NOTE | 2018-12-27 16:48 | Consultation ---
History of Present Illness - Reason for Consult Consult date: 12/27/18 Positive blood culture Requesting physician: TITO HAYNES - History of Present Illness The patient is a 38-year-old female with known history of sickle cell disease who was admitted from the hematology clinic due to complaints of diffuse body and joint pains on 12/22/2018. She was given hydration. Blood cultures on admission initially were reported as gram-negative rods, later they were cor rected to gram-positive rods and now culture finalized as diphtheroids. Hence infectious diseases was consulted for additional recommendations. Currently, patient feels well and almost back to baseline. She has remained afebrile throughout hospitalization. She denies any nausea or vomiting. She does have an indwelling port but her blood cultures were collected through peripheral venous sticks. She reports chronic leukocytosis secondary to her sickle cell disease. Review of Systems: General: no fevers,chills or rigors HEENT: no new visual disturbance Respiratory: No cough, sputum, hemoptysis or shortness of breath Cardiovascular: No chest pain, syncope Gastrointestinal: No nausea, vomiting or diarrhea Genitourinary: No dysuria or hematuria Musculoskeletal: No new or worsening neck pain or back pain. Chronic pain + Neurologic: No headaches, seizures Hematologic: No easy bruising or bleeding Endocrine: No night sweats or acute weight loss Skin: negative for rash, jaundice Psychiatric: No suicidal or homicidal ideation Past History Past Medical History: migraines Social history: Family history: no significant family history Medications and Allergies Allergies Allergy/AdvReac Type Severity Reaction Status Date / Time codeine Allergy Unknown Verified 12/22/18 17:35 vancomycin Allergy Rash Verified 12/22/18 17:35 Home Medications Medication Instructions Recorded Confirmed Last Taken Type Folic Acid [Folvite] 1 mg PO BID 05/03/13 12/22/18 12/21/18 20:30 History Gabapentin 300 mg PO TID 05/03/13 12/22/18 12/21/18 20:30 History Morphine [Morphine TAB] 30 mg PO Q4-6H PRN 05/03/13 12/22/18 12/22/18 14:00 History Promethazine [Phenergan] 25 mg PO Q4-6H PRN 05/03/13 12/22/18 12/21/18 20:30 History Furosemide [Lasix TAB] 80 mg PO BID 10/12/13 12/22/18 12/21/18 12:00 History Potassium Chloride 20 meq PO DAILY 05/04/14 12/22/18 12/21/18 20:30 History Fluticasone/Salmeterol [Advair 1 puff IH BID 01/18/15 12/22/18 12/21/18 22:00 History Diskus 500-50 mcg] Butalb/Acetamin/Caff 50-325-40 50 mg PO Q6HR PRN 03/20/15 12/22/18 12/22/18 12:00 History [Fioricet 50-325-40] Venlafaxine [Effexor 37.5mg tab] 37.5 mg PO BID 03/20/15 12/22/18 01/04/16 11:53 History hydrOXYzine PAMOATE [Vistaril] 50 mg PO BID PRN 03/20/15 12/22/18 12/21/18 20:30 History Methadone [Dolophine] 10 mg PO Q6H PRN 07/13/15 12/22/18 12/22/18 12:00 History Zolpidem [Ambien] 10 mg PO QHS 07/13/15 12/22/18 12/21/18 20:30 History Active Meds: Active Medications Amitriptyline HCl (Elavil) 75 mg PO QHS [facility] Last Admin: 12/26/18 21:32 Dose: 75 mg Documented by: Apixaban (Eliquis) 5 mg PO Q12HR [facility]; Protocol Last Admin: 12/27/18 09:38 Dose: 5 mg Documented by: Diphenhydramine HCl (Benadryl) 50 mg IV Q6H PRN PRN Reason: Itching Last Admin: 12/27/18 12:40 Dose: 50 mg Documented by: Docusate Sodium (Colace) 100 mg PO BID [facility] Last Admin: 12/27/18 09:38 Dose: 100 mg Documented by: Folic Acid (Folvite) 1 mg PO QDAY [facility] Last Admin: 12/27/18 09:38 Dose: 1 mg Documented by: Hydromorphone HCl (Dilaudid) 2 mg IV Q3H PRN PRN Reason: Pain , Severe (7-10) Last Admin: 06/22/19 16:25 Dose: 2 mg Documented by: Dextrose/Sodium Chloride (D5ns 0.2%) 1,000 mls @ 175 mls/hr IV DIRECT DIONTE Last Admin: 12/27/18 12:44 Dose: 175 mls/hr Documented by: Ceftriaxone Sodium (Rocephin/Ns 1 Gm/50 Ml) 1 gm in 50 mls @ 100 mls/hr IV Q24HR DIONTE; Protocol Last Admin: 12/27/18 09:39 Dose: 100 mls/hr Documented by: Methadone HCl (Dolophine) 10 mg PO Q8HR PRN PRN Reason: BREAKTHRU PAIN Last Admin: 12/22/18 23:14 Dose: 10 mg Documented by: Ondansetron HCl (Zofran) 4 mg IV Q8H PRN PRN Reason: Nausea And Vomiting Last Admin: 12/23/18 01:20 Dose: 4 mg Documented by: Polyethylene Glycol (Miralax 3350) 17 gm PO QDAY PRN PRN Reason: Constipation Zolpidem Tartrate (Ambien) 5 mg PO QHS PRN PRN Reason: Sleep Last Admin: 12/27/18 03:38 Dose: 5 mg Documented by: Physical Examination - Physical Exam Narrative exam: Physical Exam: Constitutional: Alert, cooperative. No acute distress Head, Ears, Nose: Normocephalic, atraumatic. External ears, nose normal Eyes: Conjunctivae/corneas clear. No icterus. No ptosis. Neck: Supple, no meningeal signs Oral: no thrush Cardiovascular: S1, S2 normal. Respiratory: Good air entry, clear to auscultation bilaterally GI: Soft, non-tender; bowel sounds normal. No peritoneal signs Musculoskeletal: No pedal edema, no cyanosis. Right upper chest PORT + c/d/i Skin: No rash or abscess Hem/Lymphatic: No palpable cervical or supraclavicular nodes. No lymphangitis Psych: Mood ok. Affect normal Neurological: Awake, alert, oriented. No gross abnormality - Constitutional Vitals: Vital Signs Temp Pulse Resp BP Pulse Ox 99 F 99 H 18 104/42 95 12/26/18 23:00 12/26/18 23:00 12/27/18 16:25 12/26/18 22:21 12/27/18 14:00 Temperature -Last 24 Hours Temperature 99 F Results - Labs CBC & Chem 7: 06/21/19 09:40 12/26/18 09:40 Assessment and Plan Cultures: 12/22/2018 blood culture: One out of 4 bottles positive for diphtheroids 12/22/2018 urine culture: Significant growth A/P: 38/F with sickle cell disease, admitted with: 1) 07/11 GPR bacteremia: identified as diphteroids. Very likely a skin contaminant. No fevers. 2) Sickle cell disease: Improving with hydration. Awaiting discharge. 3) Leukocytosis: chronic and related to her sickle cell disease Recs: 1 out of 4 bottles positive with diphtheroids, very likely skin contaminant Okay to discharge from ID standpoint. Cornel Waters MD [facility] C: [phone] O: [phone] F: [phone]
[2018-12-27] MEDS: ELAVIL PO SCH (21:03)
[2018-12-28] MEDS: DILAUDID IV PRN (00:31)
[2018-12-28] MEDS: D5NS 0.2% 1,000 ML IV SCH (02:15)
[2018-12-28] MEDS: BENADRYL IV PRN (03:07)
[2018-12-28] MEDS: COLACE PO SCH (10:13)
[2018-12-28] MEDS: FOLVITE PO SCH (10:13)
[2018-12-28] MEDS: ELIQUIS PO SCH (10:13)
[2018-12-28] MEDS: ROCEPHIN/NS 1 GM/50 ML 1 GM/50 ML BAG IV SCH (10:13)
[2018-12-28 13:08] VITALS: BP 109/53
--- NOTE | 2018-12-28 15:32 | Discharge Summary ---
Providers - Providers Date of Admission: 12/22/18 16:38 Date of discharge: 12/28/18 Attending physician: TITO HAYNES 12/26/18 19:06 Consult to Physician [CONS] Routine Comment: Consulting Provider: TONY YAN Physician Instructions: Reason For Exam: Bacteremia with Diptheroids in blood. Primary care physician: [facility] Hospitalization Reason for admission: SCD/pain crisis Condition: Good Hospital course: Patient presented to the office with pain diffuse in all the joint, unable to control from home, she was admitted for sxs management/control. She was hydrated, treated with pain control, and treated with IV ABX for positive blood cultures. ID was consulted, and cleared for discharge.She will follow up with me in the office. Disposition: TO HOME OR SELFCARE - Discharge Diagnoses (1) Sickle cell anemia with pain Status: Chronic (2) Dehydration Status: Resolved (3) Pruritic condition Status: Resolved (4) Bacteremia Status: Resolved (5) Sepsis Status: Resolved Core Measure Documentation - Palliative Care Palliative Care/ Comfort Measures: Not Applicable - Core Measures Any of the following diagnoses?: history only Exam - Constitutional Vitals: Temp Pulse Resp BP Pulse Ox 98.8 F 97 H 18 109/53 99 12/28/18 12:21 12/28/18 12:21 12/28/18 12:21 12/28/18 12:21 12/28/18 12:21 General appearance: Present: no acute distress - EENT Eyes: Present: PERRL ENT: hearing intact, clear oral mucosa - Neck Neck: Present: supple, normal ROM - Respiratory Respiratory effort: normal Respiratory: bilateral: CTA - Cardiovascular Heart Sounds: Present: S1 & S2. Absent: rub, click - Extremities Extremities: pulses symmetrical, No edema Peripheral Pulses: within normal limits - Abdominal General gastrointestinal: Present: soft, non-tender, non-distended, normal bowel sounds Female genitourinary: Present: deferred - Rectal Rectal Exam: deferred - Integumentary Integumentary: Present: clear, warm, dry - Musculoskeletal Musculoskeletal: gait normal, strength equal bilaterally - Psychiatric Psychiatric: appropriate mood/affect, intact judgment & insight - Neurologic Neurologic: CNII-XII intact, moves all extremities Plan Activity: no restrictions Diet: regular Follow up with: PRIMARY CARE, [Primary Care Provider] - 7 Days
[2018-12-28] MEDS ORDERED: FLUSH HEPARIN IV ONE (15:55)
[2018-12-28] MEDS ORDERED: TRIPLE ANTIBIOTIC TP ONE (15:55)
== END 2018-12-28 16:30 | disposition home or self-care (01) | DRG 871 ==
LOC: UNDOADMIN 16:28 → 3A 16:28
PROVIDERS: ADMIT Internal Medicine Hematology & Oncology; ATTEND Internal Medicine Hematology & Oncology
DX: A41.89 Other specified sepsis (principal); D57.00 Hb-SS disease with crisis, unspecified; L29.8 Other pruritus; E86.0 Dehydration; T40.2X5A Adverse effect of other opioids, initial encounter; G43.909 Migraine, unspecified, not intractable, without status migrainosus; Z88.5 Allergy status to narcotic agent; Z88.1 Allergy status to other antibiotic agents; Z79.899 Other long term (current) drug therapy; Y92.89 Other specified places as the place of occurrence of the external cause
CPT/HCPCS: 36415; 80048; 80053; 81001; 83550; 83615; 85007; 85025; 85045; 85220; 87040; 87086; G0378; A6250; J0696; J1170; J1200; J1642; J1940; J2405